=== PATIENT | male | born 1960 | race Caucasian/White ===

== ENCOUNTER 2023-09-07 07:00 | Outpatient (CLI) | payer OTHER, SELFPAY ==
--- NOTE | 2023-09-07 07:15 | CRLHL7_ITS ---
For Patients: As a result of the 21st Century Cures Act, medical imaging exams and procedure reports are released immediately into your electronic medical record. You may view this report before your referring provider. If you have questions, please contact your health care provider. INDICATION: Spinal stenosis. TECHNIQUE: Sagittal and axial T1, sagittal axial T2 and sagittal STIR images were obtained. FINDINGS: There is multilevel lumbar spondylosis. Sagittal alignment within normal limits. Schmorl`s node endplate changes in the lower thoracic and upper lumbar endplates. 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 Distal cord and conus medullaris normal in morphology and signal intensity conus terminates normally at L1. At L2-3 relative degenerative disc desiccation. Mild bilateral facet arthropathy. No disc herniation. Mild central canal stenosis. Lateral recesses and neural foramen are adequately patent. At L3-4 degenerative disc desiccation. Mild circumferential annular bulge. Mild bilateral facet arthropathy prominence of dorsal epidural fat. Mild central canal stenosis. There is a shallow right foraminal disc protrusion and associated mild to moderate right-sided mild left-sided neural foraminal narrowing. At L4-5 there is degenerative disc desiccation. There is a large left paracentral disc extrusion with resultant severe central spinal canal stenosis and compression of the traversing left L5 nerve root. Bilateral facet arthropathy and thickening of the left ligamentum flavum contributes to central canal stenosis. There is mild moderate bilateral foraminal narrowing. At L5-S1 disc desiccation and mild disc space narrowing. Mild circumferential disc bulging mild facet hypertrophy without stenosis of the spinal canal or neural foramen. There is partial ankylosis of the right sacroiliac joint and bilateral SI joint degenerative changes. Heterogeneous bone marrow signal throughout the lumbar spine and upper sacrum is a nonspecific finding. No evidence of cortical bone destruction or paraspinal mass. IMPRESSION: 1. Multilevel disc degeneration and facet arthropathy superimposed on congenitally narrowed spinal canal. 2. At L4-5 left paracentral disc extrusion and posterior element hypertrophy results in left L5 nerve impingement. Moderate to severe central canal stenosis and left greater than right neural foraminal narrowing. 3. At L3-4 mild central canal stenosis due to congenitally shortened pedicles posterior element hypertrophy and shallow right foraminal disc protrusion. 4. Bilateral sacroiliac joint degenerative change. 5. Nonspecific heterogeneous bone marrow signal. Dictated by Edmund Muñoz MD @ 09/07/2023 10:09:29 AM (Electronically Signed)
== END 2023-09-07 07:01 | disposition home or self-care (01) ==
PROVIDERS: PCP Family Medicine; Visit Provider Family Medicine
DX: M48.00 Spinal stenosis, site unspecified (principal); M51.36 Other intervertebral disc degeneration, lumbar region; M48.061 Spinal stenosis, lumbar region without neurogenic claudication
CPT/HCPCS: 72148

== ENCOUNTER 2023-09-17 07:31 | Outpatient (CLI) | payer OTHER, SELFPAY | END 2023-09-17 07:32 | disposition home or self-care (01) | LOC: INJ CL 07:31 | PROVIDERS: PCP Family Medicine; Visit Provider Family Medicine | DX: M54.16 Radiculopathy, lumbar region (principal); M48.062 Spinal stenosis, lumbar region with neurogenic claudication | CPT/HCPCS: 62323; J0702; Q9966 ==